=== PATIENT | male | born 1935 | race Caucasian/White ===

== ENCOUNTER 2017-12-25 09:35 | Inpatient (IN) | payer OTHER ==
[2017-11-24 11:15] VITALS: BMI 28.0
--- NOTE | 2017-11-24 11:48 | PAT Medication Instructions ---
Service Date Nov 24, 2017. Current Home Medication List Apixaban (Eliquis), 5 MG PO BID Cholecalciferol (Vitamin D 400 Iu), 400 INTER.UNIT PO QAM Hydrochlorothiazide (Hctz), 25 MG PO QAM Lisinopril (Lisinopril), 20 MG PO QPM Metoprolol Succ (Toprol Xl) (Toprol-Xl ), 100 MG PO QAM Sertraline (Zoloft), 25 MG PO QPM Medication Instructions For Your Scheduled Surgery - Check with surgeon and cardiologists (In order to use spinal anesthesia, need to hold Eliquis 72 hours prior to surgery; please check if okay with services manager): Apixaban (Eliquis), 5 MG PO BID - Hold the following medications the morning of surgery: Hydrochlorothiazide (Hctz), 25 MG PO QAM Cholecalciferol (Vitamin D 400 Iu), 400 INTER.UNIT PO QAM - Take the following medications the morning of surgery with a sip of water: Metoprolol Succ (Toprol Xl) (Toprol-Xl ), 100 MG PO QAM - Take the following medications as scheduled the night before surgery: Sertraline (Zoloft), 25 MG PO QPM If you have any questions please call us at [phone] or [phone] or [phone]
--- NOTE | 2017-11-24 12:58 | DIAGNOSTIC IMAGING REPORT ---
CHEST 2 VIEWS ROUTINE CLINICAL HISTORY: 82 years-old Male presenting with preoperative assessment for left hip osteoarthritis. TECHNIQUE: PA and lateral views of the chest were obtained. COMPARISON: 06/14/2012. FINDINGS: Atherosclerosis of aortic arch. Cardiac silhouette enlarged. Mildly low lung volumes. Lungs and pleural spaces clear. Degenerative changes of the thoracic spine. Upper abdomen normal. IMPRESSION: 1. Mild cardiomegaly. Otherwise no acute cardiopulmonary disease. Electronically signed by: Efra Thompson M.D. 11/24/2017 12:57 PM Dictated Date/Time: 11/24/2017 12:56 PM
[2017-11-24 13:20] LABS: BASO % 0.2 %; BASO ABS # 0.02 K/uL (0-0.2); EOS % 3.6 %; EOS ABS # 0.31 K/uL (0-0.5); HEMATOCRIT 42.8 % (42-52); HEMOGLOBIN 15.2 g/dL (14.0-18.0); IG# 0.07 K/uL (0.00-0.02); LYMPH % 27.6 %; MEAN CELL VOLUME 93.2 fL (80-100); MEAN CORPUSCULAR HEMOGLOBIN 33.1 pg (25-34); MEAN CORPUSCULAR HGB CONC 35.5 g/dl (32-36); MEAN PLATELET VOLUME 10.5 fL (7.4-10.4); MONO % 8.4 %; MONO ABS # 0.73 K/uL (0.11-0.59); NEUT % 59.4 %; NEUT ABS # 5.17 K/uL (1.4-6.5); PLATELET COUNT 149 K/uL (130-400); RED CELL DISTRIBUTION WIDTH CV 13.8 % (11.5-14.5); RED CELL DISTRIBUTION WIDTH SD 46.7 fL (36.4-46.3)
[2017-11-24 13:35] LABS: PTT PATIENT 28.8 SECONDS (21.0-31.0)
[2017-11-24 13:46] LABS: ALBUMIN 3.9 gm/dl (3.4-5.0); CALCIUM 9.4 mg/dl (8.5-10.1); CREATININE 1.39 mg/dl (0.60-1.40); POTASSIUM 4.1 mmol/L (3.5-5.1)
[2017-11-25 07:38] LABS: HEMOGLOBIN A1C 6.2 % (4.5-5.6)
--- NOTE | 2017-12-22 11:43 | HISTORY & PHYSICAL EXAMINATION ---
DATE OF ADMISSION: 12/25/2017 CHIEF COMPLAINT: Left total hip instability. HISTORY OF PRESENT ILLNESS: The patient is an 82-year-old gentleman approximately 5 years status post left total hip arthroplasty. Since that time he has had 2 dislocations, the most recent being last fall. Due to recurrent hip instability, he is now scheduled for a left SWEETIE revision. PAST MEDICAL HISTORY: Hypertension, irregular heartbeat, and osteoarthritis. PAST SURGICAL HISTORY: Left hip as above. MEDICATIONS: Cardura 8 mg daily, amlodipine 10 mg daily, and lisinopril 40 mg daily. ALLERGIES: No known drug allergies. SOCIAL HISTORY AND REVIEW OF SYSTEMS: Noncontributory. PHYSICAL EXAMINATION: GENERAL: Well-nourished, well-developed elderly male who appears his stated age. HEENT: Normocephalic, atraumatic, extraocular movements intact, oropharynx pink and moist. NECK: Supple without adenopathy. LUNGS: Clear to auscultation bilaterally. HEART: Regular rate and rhythm. ABDOMEN: Soft, nontender, nondistended. EXTREMITIES: The upper extremities are within normal limits. The left hip has a well-healed lateral incision from his previous arthroplasty. His hip is mobile without pain. X-RAYS: X-rays were reviewed. He has a connective type True hip in place. The components appear well aligned and well fixed. ASSESSMENT: Recurrent left total hip instability. PLAN: Risks versus benefits were discussed. Consent was obtained. The patient's primary care physician is Dr. Foley. Will proceed with a left total hip revision to a constrained acetabular liner, possible complete hip revision upon preoperative workup and medical clearance.
[~2017-12-25] VITALS: Ht 177.8 cm; Wt 93.7 kg
[2017-12-25] VITALS (9 sets, daily range): BP systolic 123–153; BP diastolic 73–121; PULSE 71–126; TEMP 36.4–36.7; O2SAT 93–99; Ht 177.8 cm; Wt 93.7 kg
--- NOTE | 2017-12-25 08:35 | History & Physical Bridge Note ---
H&P Re-Evaluation Bridge Note: I have examined the patient, reviewed the History & Physical and in the interval since the performance of the History & Physical I have noted the following changes of clinical significance: No changes noted
[~2017-12-25 09:35] MED LIST: ACETAMINOPHEN 500 MG TAB PO SCH; APIX1TAB3 PO; ATROPINE SULFATE 0.1 MG/ML 5ML SYR IV PRN; BUPIVACAINE 0.5 % 5 MG/1 ML PF 10ML VIAL ONE; CEFAZOLIN 2000MG IV PUSH 15 ML IV SCH; CHOL400C7 PO; CeleBREX 200 MG CAP PO SCH; DEXAMETHASONE 4 MG TAB PO SCH; EpHEDrine SULFATE INJ 50 MG/ML AMP IV PRN; FAMOTIDINE 20 MG TAB PO SCH; FENTANYL CITRATE INJ 50 MCG/1 ML 2 ML VIAL IV PRN; GABAPENTIN 300 MG CAP PO SCH; HYDR25TA4 PO; LACTATED RINGER'S 1000ML 1,000 ML IV SCH; LACTATED RINGER'S 1000ML 500 ML IV SCH; LSN20 PO; METO100T44 PO; ONDANSETRON INJ 2 MG/ML 2 ML VIAL IV PRN; ROPIVACAINE 5MG/ML 30 ML 150 MG, BUPIVACAINE 0.5% MPF INJ 30 ML, EpINEphrine HCL INJ 0.... INFIL SCH; SERT25TA PO
[2017-12-25] MEDS ORDERED: LIDOCAINE HCL 2% 2 ML VIAL (20MG/ML) ONE (10:30)
[2017-12-25] MEDS ORDERED: PROPOFOL IV EMULSION 10 MG/ML 20 ML VIAL IV ONE (10:30)
[2017-12-25] MEDS ORDERED: MIDAZOLAM HCL 1 MG/ML 2ML VIAL ONE (10:30)
[2017-12-25] MEDS ORDERED: FENTANYL CITRATE INJ 50 MCG/1 ML 2 ML VIAL ONE (10:30)
[2017-12-25] MEDS ORDERED: POVIDONE-IODINE OP SOLN 30 ML BTL ONE (10:55)
[2017-12-25] MEDS ORDERED: BACITRACIN 50000 UNIT VIAL ONE (10:55)
[2017-12-25] MEDS ORDERED: ORTHO JOINT ANESTHETIC ONE (10:55)
[2017-12-25] MEDS ORDERED: ALBUMIN HUMAN 5% 12.5 GM/250 ML VIAL IV ONE (11:09)
[2017-12-25] MEDS ORDERED: PHENYLEPHRINE HCL INJ 10 MG/ML VIAL ONE (12:05)
--- NOTE | 2017-12-25 12:31 | [facility] Post Operative Brief Note ---
Immediate Operative Summary Operative Date Dec 25, 2017. Pre-Operative Diagnosis instability left hip Post-Operative Diagnosis same Procedure(s) Performed revision total hip to constrained Surgeon Margoth Manufacturing Quality Inspector Surgeon(s) adama Estimated Blood Loss 100cc Findings Consistent with Post-Op Diagnosis Specimens Femoral head neck and acetabulum Anesthesia Type MAC Spinal Regional Complication(s) none Disposition Accompanied Pt To Recover: no Disposition: Recovery Room / PACU
[2017-12-25] MEDS ORDERED: ONDANSETRON INJ 2 MG/ML 2 ML VIAL IV PRN (13:15)
[2017-12-25] MEDS ORDERED: TRAMADOL HCL 50 MG TAB PO PRN (13:15)
[2017-12-25] MEDS ORDERED: MAGNESIUM HYDROXIDE SUSP 30 ML UDC PO PRN (13:15)
[2017-12-25] MEDS ORDERED: OXYCODONE HCL IR 5 MG TAB (IMMEDIATE RELEASE) PO PRN (13:15)
[2017-12-25] MEDS ORDERED: ALUMINUM/MAGNESIUM/SIMETH (MAALOX MAX) 30 ML UDC PO PRN (13:15)
--- NOTE | 2017-12-25 13:39 | Anesthesiology Progress Note ---
Anesthesia Post Op Note Date & Time Dec 25, 2017 at 13:38 Vital Signs Pain Intensity: 0 Vital Signs Past 12 Hours Date Time Temp Pulse Resp B/P (MAP) Pulse Ox O2 Delivery O2 Flow Rate FiO2 12/25/17 13:30 84 18 104/73 99 Nasal Cannula 2 12/25/17 13:20 74 16 110/77 100 Oxymask 10 12/25/17 13:10 71 16 101/59 100 Oxymask 10 12/25/17 13:00 36.3 69 13 120/83 98 Oxymask 10 12/25/17 10:12 36.7 126 20 153/121 99 Room Air Notes Mental Status: alert / awake / arousable, participated in evaluation Pt Amnestic to Procedure: Yes Nausea / Vomiting: adequately controlled Pain: adequately controlled Airway Patency, RR, SpO2: stable & adequate BP & HR: stable & adequate Hydration State: stable & adequate Neuraxial Anesthesia: was administered, sensory block is resolving Anesthetic Complications: no major complications apparent Patient presented initially with A fib in RVR. HR has normalized and he was stable throughout the procedure. Still felt it was to his benefit to be monitored on telemetry.
--- NOTE | 2017-12-25 13:58 | DIAGNOSTIC IMAGING REPORT ---
SINGLE VIEW PELVIS; SINGLE VIEW LEFT HIP CLINICAL HISTORY: Postoperative examination. FINDINGS: An AP portable view of the hips and pelvis with a crosstable lateral portable view of the left hip are obtained. A bipolar left hip arthroplasty is in near-anatomic alignment. A single cortical lag screw transfixes the acetabular cup. No acute fracture is identified. There are expected postoperative changes overlying the left hip including skin clips, subcutaneous gas, a surgical drain, and soft tissue swelling. Atherosclerotic calcification is noted in the left femoral artery. Mild arthritic change is seen in the right hip. IMPRESSION: Expected postoperative findings status post left hip arthroplasty. No acute fracture is seen. Electronically signed by: Gustavo Hay M.D. 12/25/2017 1:57 PM Dictated Date/Time: 12/25/2017 1:56 PM
[2017-12-25] MEDS: D5W AND 1/2NSS + 20MEQ KCL 1,000 ML IV SCH (15:14)
[2017-12-25] MEDS: ACETAMINOPHEN 500 MG TAB PO SCH ×2 (16:02→21:42)
[2017-12-25] MEDS: FERROUS GLUCONATE 324 MG TAB PO SCH (16:54)
--- NOTE | 2017-12-25 18:37 | OPERATIVE REPORT ---
DATE OF OPERATION: 12/25/2017 PREOPERATIVE DIAGNOSIS: Recurrent instability, left hip. POSTOPERATIVE DIAGNOSIS: Recurrent instability, left hip. PROCEDURES: 1. Revision femoral head, neck and acetabulum. 2. Constrained total hip, left hip. SURGEON: Kirby Justin MD FORENSIC ARTIST: KENYA Michele ANESTHESIA: Spinal. COMPLICATIONS: None. OPERATION AND FINDINGS: Following induction of spinal anesthesia, the patient's left hip was prepped and draped in the usual sterile manner. The previously made Kali-Langenbeck incision was reopened. Subcutaneous tissue was sharply dissected. Electrocautery was used for hemostasis. Fascia was incised throughout the length of the wound and the hip joint was noted. The hip dislocated at 90 degrees of flexion and 60 degrees of internal rotation, really was not terribly unstable, and soft tissue was divided from the posterior aspect of the femur using electrocautery. Hohmann was used for exposure and an impactor and a mallet was used to disimpact the femoral head and next the shuttlecock was utilized to remove the femoral neck. The stem remained well fixed. Attention was turned to the acetabulum. The acetabular component appeared pristine. A drill hole plate was placed slightly eccentrically, and a screw and a Gonzales were used to remove the acetabular liner. Careful dissection surrounding the cup to expose the entire faces of cup was carried out and irrigation was used to clear blood. Next, the offset retractor as well as a double angled retractor were utilized to expose the acetabulum and a trial flat liner was placed. A trial reduction was carried out and with a flat liner and a +0 neutral neck, the hip dislocated at 40 degrees of internal rotation and 90 degrees of flexion. The various trials were carried out and +4 neck length was felt to increase soft tissue tension too much as well as increase the leg lengths too much. The trial was removed and irrigation was used to thoroughly clean the wound. The constrained acetabular cup was placed with the tabs in the appropriate position and the Wright taper and the connective stem was cleaned and dried using a fresh lap sponge. The +0 neutral femoral neck and the +0 x 32 mm femoral head were impacted in position. The ring lock was placed. The hip was reduced and the ring lock was easily impacted into position using the ring impacter. The wound was again irrigated. Hemovac drain was placed. A sterile dressing of Adaptic, 4 x 4's, ABDs and foam tape were placed after closing the skin with a Zip Strip. The patient was awakened and taken to recovery in stable and good condition. He tolerated the procedure well. I attest to the content of the Intraoperative Record and any orders documented therein. Any exception s are noted below.
[2017-12-25] MEDS: CEFAZOLIN IV 2,000 MG in SYRINGE 5 ML IV SCH (18:50)
[2017-12-25] MEDS: DOCUSATE SODIUM 100 MG CAP PO SCH (20:47)
[2017-12-25] MEDS ORDERED: SENNA 8.6 MG TAB PO SCH (21:00)
[2017-12-25] MEDS ORDERED: LISINOPRIL 20 MG TAB PO SCH (21:00)
[2017-12-25] MEDS ORDERED: SERTRALINE HCL 50 MG TAB PO SCH (21:00)
[2017-12-26] MEDS: D5W AND 1/2NSS + 20MEQ KCL 1,000 ML IV SCH ×2 (01:20→11:18)
[2017-12-26 03:03] VITALS: BP 127/77; PULSE 69; TEMP 36.5; O2SAT 96
[2017-12-26] MEDS: CEFAZOLIN IV 2,000 MG in SYRINGE 5 ML IV SCH (03:32)
[2017-12-26] MEDS: ACETAMINOPHEN 500 MG TAB PO SCH ×2 (05:37→13:37)
[2017-12-26 05:39] LABS: BASO % 0.1 %; BASO ABS # 0.01 K/uL (0-0.2); HEMATOCRIT 34.2 % (42-52); HEMOGLOBIN 11.9 g/dL (14.0-18.0); IG# 0.04 K/uL (0.00-0.02); LYMPH % 11.8 %; LYMPH ABS # 1.42 K/uL (1.2-3.4); MEAN CELL VOLUME 93.4 fL (80-100); MEAN CORPUSCULAR HEMOGLOBIN 32.5 pg (25-34); MEAN CORPUSCULAR HGB CONC 34.8 g/dl (32-36); MEAN PLATELET VOLUME 10.5 fL (7.4-10.4); MONO % 8.2 %; MONO ABS # 0.99 K/uL (0.11-0.59); NEUT % 79.6 %; NEUT ABS # 9.61 K/uL (1.4-6.5); PLATELET COUNT 118 K/uL (130-400); RED CELL DISTRIBUTION WIDTH CV 13.2 % (11.5-14.5); WHITE BLOOD COUNT 12.07 K/uL (4.8-10.8)
[2017-12-26 06:06] LABS: CALCIUM 8.3 mg/dl (8.5-10.1); CREATININE 2.16 mg/dl (0.60-1.40); POTASSIUM 4.8 mmol/L (3.5-5.1)
[2017-12-26 07:38] VITALS: BP 143/89; PULSE 107; TEMP 36.4; O2SAT 95
[2017-12-26] MEDS: FERROUS GLUCONATE 324 MG TAB PO SCH ×2 (08:00→13:37)
[2017-12-26] MEDS: DOCUSATE SODIUM 100 MG CAP PO SCH (08:00)
[2017-12-26] MEDS ORDERED: APIXABAN 2.5 MG TAB PO SCH (09:00)
[2017-12-26] MEDS ORDERED: MULTIVITAMIN TAB PO SCH (09:00)
[2017-12-26] MEDS ORDERED: METOPROLOL SUCC 50MG EXT REL TAB PO SCH (09:00)
--- NOTE | 2017-12-26 09:45 | Orthopedic Progress Note ---
Orthopedic Progress Note Date of Service Dec 26, 2017. Subjective Post OP Day: 1 Reports: feeling well, Denies: complaints Objective calves soft nontender, N/V intact, hip located, dressing C/D/I, A&O x3, toes mobile Date Time Temp Pulse Resp B/P (MAP) Pulse Ox O2 Delivery O2 Flow Rate FiO2 12/26/17 08:00 Room Air 12/26/17 07:38 36.4 107 19 143/89 (107) 95 Room Air 12/26/17 04:00 Room Air 12/26/17 03:03 36.5 69 18 127/77 (94) 96 Room Air 12/25/17 23:59 Room Air 12/25/17 23:07 36.7 76 17 123/91 (102) 94 Room Air 12/25/17 20:00 93 Room Air 12/25/17 19:08 36.7 82 18 141/82 (101) 93 Room Air 12/25/17 16:59 36.6 82 18 131/79 (96) 96 Room Air 12/25/17 16:00 96 Nasal Cannula 2.0 12/25/17 15:35 36.4 82 16 131/73 (92) 96 12/25/17 14:27 36.5 71 16 131/85 (100) 98 Nasal Cannula 2.0 12/25/17 14:00 36.4 77 16 132/81 (98) 97 Room Air 2.0 12/25/17 13:40 36.3 75 21 119/67 99 Nasal Cannula 2 12/25/17 13:30 84 18 104/73 99 Nasal Cannula 2 12/25/17 13:20 74 16 110/77 100 Oxymask 10 12/25/17 13:10 71 16 101/59 100 Oxymask 10 12/25/17 13:00 36.3 69 13 120/83 98 Oxymask 10 12/25/17 10:12 36.7 126 20 153/121 99 Room Air Laboratory Results 24 Hours: Test 12/26/17 05:11 White Blood Count 12.07 K/uL Red Blood Count 3.66 M/uL Hemoglobin 11.9 g/dL Hematocrit 34.2 % Mean Corpuscular Volume 93.4 fL Mean Corpuscular Hemoglobin 32.5 pg Mean Corpuscular Hemoglobin Concent 34.8 g/dl Platelet Count 118 K/uL Mean Platelet Volume 10.5 fL Neutrophils (%) (Auto) 79.6 % Lymphocytes (%) (Auto) 11.8 % Monocytes (%) (Auto) 8.2 % Eosinophils (%) (Auto) 0.0 % Basophils (%) (Auto) 0.1 % Neutrophils # (Auto) 9.61 K/uL Lymphocytes # (Auto) 1.42 K/uL Monocytes # (Auto) 0.99 K/uL Eosinophils # (Auto) 0.00 K/uL Basophils # (Auto) 0.01 K/uL Assessment & Plan Assessment: POD 1 s/p Left SWEETIE revision of Acetabulum (to constrained liner) and revision of femoral head Rise in BUN/Creat Plan: PT/OT Can be WBAT Pt lives alone. Will have to see how he does in PT and decide whether he will need Rehab vs home health Contiue IV fluids consult Med Service ADDENDUM 1333: PT SEEN BY DR ESPINOZA. CLEARED FOR DC. PROGRESSING WITH PT. PLAN FOR DC TO HOME TODAY WITH BMP DRAW 12/28/17 AND PCP F/U Inhouse Planning Pain Management: Ultram, PO Tylenol, Oxy IR DVT Prophylaxis: TEDs, SCDs, other (Apixaban) Discharge Planning Discharge Planning: uncertain
--- NOTE | 2017-12-26 10:04 | Anesthesiology Progress Note ---
Anesthesia Post Op Note Date & Time Dec 26, 2017 at 10:03 Vital Signs Pain Intensity: 0.0 Vital Signs Past 12 Hours Date Time Temp Pulse Resp B/P (MAP) Pulse Ox O2 Delivery O2 Flow Rate FiO2 12/26/17 08:00 Room Air 12/26/17 07:38 36.4 107 19 143/89 (107) 95 Room Air 12/26/17 04:00 Room Air 12/26/17 03:03 36.5 69 18 127/77 (94) 96 Room Air 12/25/17 23:59 Room Air 12/25/17 23:07 36.7 76 17 123/91 (102) 94 Room Air Notes Mental Status: alert / awake / arousable, participated in evaluation Pt Amnestic to Procedure: Yes Nausea / Vomiting: adequately controlled Pain: adequately controlled Airway Patency, RR, SpO2: stable & adequate BP & HR: stable & adequate Hydration State: stable & adequate Neuraxial Anesthesia: was administered, sensory block resolved Anesthetic Complications: no major complications apparent
[2017-12-26 11:39] VITALS: BP 140/72; PULSE 115; TEMP 36.8; O2SAT 95
--- NOTE | 2017-12-26 12:46 | Discharge Instructions ---
Discharge Instructions Date of Service Dec 26, 2017. Admission Reason for Admission: Left Hip Osteoarthritis Discharge Discharge Diagnosis / Problem: Left hip osteoarthritis, acute kidney injury Discharge Goals Goal(s): Decrease discomfort, Improve function, Diagnostic testing (labs on ) Activity Recommendations Activity Limitations: per Instructions/Follow-up section (per ortho instructions) . Instructions / Follow-Up Instructions / Follow-Up Medications: - LISINOPRIL and HYDROCHLOROTHIAZIDE: hold until told to resume by your family doctor Acute kidney injury: likely from surgery, dehydration, taking Lisinopril and HCTZ making adequate urine, electrolytes are stable stay well hydrated, drink plenty of water, hold the Lisinopril and HCTZ call your family doctor to request BMP (basic metabolic panel) on to recheck renal function your Creatinine is 2.16 today, back on November 24 it was 1.39 which is your baseline Current Hospital Diet Patient's current hospital diet: Regular Diet Discharge Diet Recommended Diet: Regular Diet Procedures Procedures Performed: Left Total Hip Arthroplasty with Constrained Acetabular Pending Studies Studies pending at discharge: no Laboratory Results Hemoglobin A1c Test 11/24/17 11:54 Range/Units Estimated Average Glucose 131 mg/dl Hemoglobin A1c 6.2 H 4.5-5.6 % Medical Emergencies . Who to Call and When: Medical Emergencies: If at any time you feel your situation is an emergency, please call 911 immediately. . Non-Emergent Contact Non-Emergency issues call your: Primary Care Provider Call Non-Emergent contact if: you have any medication questions . . "Provider Documentation" section prepared by Luther Escoto. . VTE Core Measure Inpt VTE Proph given/why not?: Other Anticoagulation (Eliquis) [place] Drug Monitoring Program Search Results: no issues identified
--- NOTE | 2017-12-26 12:57 | Discharge Instructions ---
Discharge Instructions Date of Service Dec 26, 2017. Admission Reason for Admission: Left Hip Osteoarthritis Discharge Discharge Diagnosis / Problem: Chronic Left SWEETIE Instability Discharge Goals Goal(s): Decrease discomfort, Improve function, Increase independence Activity Recommendations Activity Limitations: per Instructions/Follow-up section Weightbearing Status: Left weightbearing (as tolerated) . Instructions / Follow-Up Instructions / Follow-Up ACTIVITY RECOMMENDATIONS: SELF CARE INSTRUCTIONS AFTER TOTAL HIP REPLACEMENT : Direct Anterior Approach Until the incision and soft tissues around your hip have healed, there is a possibility that the hip prosthesis could dislocate though unlikely. A. Hip flexion ( Up & Down out of chair or steps ) may be difficult. This is normal. B. Numbness in front of the thigh is also normal for a few weeks. C. Use hand rails when walking on stairs. D. Wear low heeled shoes with non-slip soles. E. Be sure that your floors are free of things that could trip you - throw rugs , electrical cords, small objects. Avoid wet and waxed floors, especially with crutches and canes. F. Try to walk several times a day with rest periods between. G. Continue with all the exercises taught to you in the hospital. Again, make walking a part of your daily routine. SPECIAL CARE INSTRUCTIONS: VERY IMPORTANT TO READ AND REVIEW A. You may still be at risk for phlebitis and blood clots. 1. Wear surgical stockings (MARTHA hose) for 2 weeks after surgery to improve circulation and reduce swelling. 2. Continue your Apixaban twice a day. 3. High risk patients may be prescribed a stronger blood thinner if necessary. 4. If you are on Coumadin normally, your family doctor/computer hardware technician should monitor your blood work. Expect a phone call the day of or the day after bloodwork is drawn to adjust your dosage. B. You must take antibiotics before having dental work, bladder, bowel and other surgery. Your doctor will provide you with a permanent card to carry describing precautions. C. Call [facility] if you have a fever, redness or swelling around the incision, cloudy drainage from incision, or sudden increase in pain in your hip, not relieved by your regular pain medication. D. Please call the office at if you have any concerns or questions about your operation or recovery. * YOU MAY SHOWER, NO TUB BATHS UNTIL CLEARED BY YOUR DOCTOR. * WEAR MARTHA HOSE 20 HOURS PER DAY FOR 2 WEEKS. * YOU MAY PROGRESS FROM A WALKER, TO A CANE, TO INDEPENDENT AT YOUR OWN PACE. * MOST PATIENTS WILL HAVE HOME NURSING FOR THERAPY. IF YOU DECIDE TO DO OUTPATIENT PHYSICAL THERAPY, PLEASE SCHEDULE THIS 3 TIMES PER WEEK. * YOU HAVE A REGULAR DRESSING ON YOUR WOUND. CHANGE THE DRESSING DAILY. WHEN THE WOUND IS COMPLETELY DRY WITH NO DRAINAGE NOTED, YOU CAN LEAVE IT TO THE OPEN AIR. YOU CAN SHOWER IN 72 HOURS. DO NOT SOAK THE WOUND. NO TUB BATHS. DO NOT LET THE SHOWER BEAT ON THE WOUND. FOLLOW UP VISIT: If appointment is not already scheduled: Please call [facility] to make a follow-up appointment for 2 weeks after your surgery at . Current Hospital Diet Patient's current hospital diet: Regular Diet Discharge Diet Recommended Diet: Regular Diet Procedures Procedures Performed: Left Total Hip Arthroplasty with Constrained Acetabular Pending Studies Studies pending at discharge: no Laboratory Results Hemoglobin A1c Test 11/24/17 11:54 Range/Units Estimated Average Glucose 131 mg/dl Hemoglobin A1c 6.2 H 4.5-5.6 % Medical Emergencies . Who to Call and When: Medical Emergencies: If at any time you feel your situation is an emergency, please call 911 immediately. . Non-Emergent Contact Non-Emergency issues call your: Surgeon Call Non-Emergent contact if: temperature is above 101.5, your pain is not controlled, your pain is worsening, wound has increased drainage, wound has increased redness . "Provider Documentation" section prepared by Rufus Novoa. . VTE Core Measure Inpt VTE Proph given/why not?: Other Anticoagulation (Eliquis), TKaci Mckeon, SCD's [place] Drug Monitoring Program Search Results: patient reviewed within database, no issues identified
[2017-12-26] MEDS ORDERED: ACET-24 PO (12:58)
[2017-12-26] MEDS ORDERED: RXC5 PO (12:58)
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
[2017-12-26 13:52] VITALS: BP 140/72; PULSE 115; TEMP 36.8; O2SAT 95
[2017-12-26 14:35] VITALS: PULSE 97
--- NOTE | 2018-01-01 10:59 | DISCHARGE SUMMARY ---
DISCHARGE DIAGNOSIS: Chronic Instability Left SWEETIE. SECONDARY DIAGNOSES: Hypertension, irregular heartbeat, osteoarthritis. CONSULTS: Luther Escoto DO. COMPLICATIONS: None. PROCEDURES: Conversion of Left SWEETIE to constrained Acetabulum and revision of femoral head performed by Dr. Justin on 12/25/2017. BRIEF HISTORY: As dictated in history and physical. HOSPITAL SUMMARY: The patient was admitted on the above noted date and had the above noted surgery performed which he tolerated well. On his first postoperative day, he was feeling well and had no complaints. Calves were soft, nontender, neurovascularly intact. Hip was located. Dressings clean, dry and intact. Toes were mobile. Vital signs were stable. He was afebrile and he was started on physical therapy protocol and continued on DVT prophylaxis. In speaking to nursing, he had no overt problems over the night while being in telemetry due to his history of AFib and was otherwise remaining stable. Hemoglobin was 11.9 and he was started on his physical therapy protocol. His chemistry did show an increase in his BUN and creatinine and Dr. Escoto was consulted to see the patient for his question of GURU. After seeing the patient and speaking to Dr. Escoto myself, it was felt that he could be discharged to home if he was progressing with his physical therapy with plans for followup with his primary care physician that week and also a repeat BMP in 2 days. He was progressing with his PT. He was ambulating 200 feet and was otherwise remaining stable and was felt he could be discharged to home on 12/26/2017. For further review, please see chart. LAB AND X-RAY DATA: As per chart. DISCHARGE INSTRUCTIONS: The patient was discharged to home in satisfactory condition on 12/26/2017. DIET: Regular. ACTIVITY: Weightbearing as tolerated left lower extremity. Follow SWEETIE instruction sheets and special care instructions as noted. Instructions from Dr. Escoto will be to hold lisinopril and hydrochlorothiazide and get a repeat BMP on 12/28/2017 with results going to his primary care physician and patient to call primary care physician to see the patient as soon as possible and continue his metoprolol and Eliquis. Follow up with Dr. Justin in 2 weeks. The patient to call for appointment if one has not been made for you. DISCHARGE MEDICATIONS: Acetaminophen 1000 mg p.o. q. 8 hours for 21 days, oxycodone 5-10 mg p.o. q. 4 hours p.r.n., resume Eliquis 5 mg p.o. b.i.d., vitamin D 400 international units p.o. q.a.m., metoprolol 100 mg p.o. q.a.m., Zoloft 25 mg p.o. q.p.m., hold hydrochlorothiazide and lisinopril until seen in primary care physician's office this week. MTDD
== END 2017-12-26 15:04 | disposition home health service (06) | DRG 467 ==
LOC: C.ACU 09:35 → C.2T 13:19 → ENRESERV 13:22
PROC: 0SRB0JZ Replacement of Left Hip Joint with Synthetic Substitute, Open Approach (ICD-10-PCS; principal; 2017-12-25 12:00)
PROC: 0SPB0JZ Removal of Synthetic Substitute from Left Hip Joint, Open Approach (ICD-10-PCS; principal; 2017-12-25 12:00)
DX: T84.021A Dislocation of internal left hip prosthesis, initial encounter (principal); N17.9 Acute kidney failure, unspecified; I48.2 Chronic atrial fibrillation; I11.9 Hypertensive heart disease without heart failure; Z79.899 Other long term (current) drug therapy; Z96.642 Presence of left artificial hip joint; Z87.891 Personal history of nicotine dependence; Z82.49 Family history of ischemic heart disease and other diseases of the circulatory system; Y83.1 Surgical operation with implant of artificial internal device as the cause of abnormal reaction of the patient, or of later complication, without mention of misadventure at the time of the procedure